=== PATIENT | female | born 1955 | race Caucasian/White ===

== ENCOUNTER 2017-03-16 12:11 | Emergency (ER) | payer OTHER ==
[~2017-03-16] VITALS: Ht 170.2 cm; Wt 90.7 kg
[~2017-03-16 12:11] MED LIST: ABAT250V; ACET500 PO; ACID REFLUX MED; ALBIPROI; ALBU90I INH; ALBU90OI INH; ALBU90OI6 INH; ALBU90OI61 INH; AMIT10 PO; AMIT25 PO; AMIT50 PO; ANTIBIOTIC PO; ASCO500 PO; AZIT250 PO; BACITO TP; BECL80OI INH; BENZ100A PO; BISA10S PR; Bactroban22 GM TOP; CARI350 PO; CEFD300 PO; CEPH500 PO; CIME400 PO; CIPR250 PO; CIPR500 PO; CLAR500 PO; CLIN300 PO; CLON.2 PO; CODACE30 PO; CODGUAEL PO; CRUTCH4 USE; CYCL10 PO; Cleocin HCl150 MG PO; Cleocin HCl300 MG PO; DICY20 PO; DIPATR PO; DIPH50 PO; DOCU100 PO; DOXY100 PO; DOXY100T53 PO; Dazidox10 MG PO; ERYT250; ESTR1; ESTR1 PO; Esgic Tablet1 EACH PO; FERR325 PO; FOLI1 PO; Ferrous Sulfat324 MG PO; HEMOTOB PR; HYDACE10B PO; HYDACE5 PO; HYDCHL12.5 PO; HYDCHL25; HYDCHLSU PO; HYDHCL25 PO; HYDMOR2 PO; HYDPAM50 PO; IBUP400 PO; IBUP600 PO; ISODICACE PO; KETO10 PO; LEVFLO500 PO; LEVO750 PO; LEVSOD112; LEVSOD112 PO; LEVSOD125 PO; LEVSOD150 PO; LEVSOD50 PO; LORA1 PO; MELA3 PO; MELATONIN10 M2 PO; MELO7.5 PO; METCAR500 PO; METCAR750 PO; METH5; METPRE4DP PO; MONISTAT 324 GM TOP; MULVITMIND PO; NAPR500 PO; NAPR550 PO; NITR100CA PO; OMEP20ER PO; ONDA4 PO; OXYACE10 PO; OXYACE5T; OXYACE5T PO; OXYACE7.5T PO; OXYB5 PO; OXYC5; OXYC5 PO; Omeprazole20 M1 PO; PARO20; PARO20 PO; PARO30 PO; PHENA200 PO; POTCHL20ER PO; POTCIT10; POTCIT5; POTCIT5 PO; PRED10 PO; PRED20 PO; PRIMATENE; PROACE100 PO; PRODEXEL PO; PROM25 PO; PROM50S PR; Percocet 5-3251 EACH PO; Prednisone10 MG PO; Prednisone20 MG PO; QVAR7.3 G1 IH; RANI150 PO; RIFA300 PO; RXHYDACE PO; RXNAPNA550 PO; RXOXYACE PO; RXTRAM50 PO; SULTRIDS PO; Silvadene20 GM TOP; TAMS.4ER PO; THYR60; TRAACE PO; TRAM50 PO; TRAZ150T57 PO; TRAZADONE; Ultram50 MG PO; Ventolin Soln3 ML INH; Ventolin/Prove6.7 GM INH; Vibramycin100 MG PO; Zithromax250 MG PO; [UNRECOGNIZED DRUG - OTHER] PO; [UNRECOGNIZED DRUG - REMARK]; [UNRECOGNIZED DRUG - REMARK]
[2017-03-16 13:58] LABS: BASOPHILS ABSOLUTE AUTO 0.02 K/mm3 (0.00-0.23); BASOPHILS PERCENT AUTO 0 % (0-2); EOSINOPHILS ABSOLUTE AUTO 0.16 K/mm3 (0.00-0.68); EOSINOPHILS PERCENT AUTO 2 % (0-6); Hematocrit 32.1 % (33.0-51.0); Hemoglobin 9.8 g/dL (11.5-16.0); IMMATURE GRAN ABSOLUTE AUTO 0.03 K/mm3 (0.00-0.10); IMMATURE GRAN PERCENT AUTO 0 % (0-1); LYMPHOCYTES ABSOLUTE AUTO 2.31 K/mm3 (0.84-5.20); LYMPHOCYTES PERCENT AUTO 31 % (21-46); MONOCYTES ABSOLUTE AUTO 0.67 K/mm3 (0.16-1.47); MONOCYTES PERCENT AUTO 9 % (4-13); Mean Corpuscular HGB Conc 30.5 g/dL (31.5-36.5); Mean Corpuscular Volume 79 fL (80-100); Mean Platelet Volume 10.4 fL (9.1-12.4); NEUTROPHILS ABSOLUTE AUTO 4.39 K/mm3 (1.96-9.15); NEUTROPHILS PERCENT AUTO 58 % (41-73); Platelet Count 336 K/mm3 (150-400); RDW Coefficient Variation 19.8 % (11.7-14.2); RDW Standard Deviation 56.5 fL (35.1-46.3); Red Blood Cell Count 4.09 M/mm3 (3.80-5.20); White Blood Cell Count 7.58 K/mm3 (4.00-11.30)
[2017-03-16 14:20] LABS: Alanine Aminotransfer (ALT/SGP 28 U/L (12-78); Albumin, Blood 2.6 g/dL (3.4-5.0); Albumin/Globulin Ratio 0.7 (0.8-1.8); Alk Phos 126 U/L (50-136); Anion Gap 6 mmol/L (6-16); Aspartate Aminotrans (AST/SGOT 24 U/L (12-37); Bilirubin, Total 0.5 mg/dL (0.1-1.0); Blood Urea Nitrogen 7 mg/dL (8-24); Bun/Creatinine Ratio 10.8 (12.0-20.0); CO2, Blood 27 mmol/L (21-32); Calcium, Blood 7.7 mg/dL (8.5-10.1); Chloride, Blood 109 mmol/L (98-108); Creatinine, Blood 0.65 mg/dL (0.40-1.00); Globulin, Blood 3.9 g/dL (2.2-4.0); Glomerular Filtration Rate >60 (60-); Glucose, Blood 85 mg/dL (70-99); Potassium, Blood 4.3 mmol/L (3.5-5.5); Sodium, Blood 142 mmol/L (136-145); Total Protein, Blood 6.5 g/dL (6.4-8.2)
[2017-12-03] MEDS ORDERED: [UNRECOGNIZED DRUG - CODE] PO (16:03)
[2017-12-03] MEDS ORDERED: ZINC15 PO (18:20)
[2017-12-03] MEDS ORDERED: CLOBET30L TOP (18:22)
[2017-12-03] MEDS ORDERED: SKIN PROTECTAN113 GM TOP (18:24)
[2017-12-03] MEDS ORDERED: NAPR500 PO (18:25)
[2017-12-03] MEDS ORDERED: PROM25 PO (18:26)
[2017-12-03] MEDS ORDERED: BUDE6HFA INH (18:28)
[2017-12-03] MEDS ORDERED: ALBU90OI61 INH (18:29)
[2017-12-03] MEDS ORDERED: COMBIVENT RESPIM4 GM INH (18:30)
[2017-12-03] MEDS ORDERED: Omeprazole20 M1 PO (18:32)
[2017-12-03] MEDS ORDERED: Triamcinolone A15 G2 TOP (18:34)
[2017-12-05] MEDS ORDERED: AMIT25 PO (14:13)
[2017-12-05] MEDS ORDERED: LEVSOD150 PO (14:15)
[2017-12-05] MEDS ORDERED: ALBU90OI INH (14:15)
[2017-12-05] MEDS ORDERED: DIPH50 PO (14:23)
[2017-12-05] MEDS ORDERED: ACET325 PO (14:26)
[2017-12-05] MEDS ORDERED: ASCO500 PO (14:27)
[2017-12-05] MEDS ORDERED: CEPH500 PO (14:27)
[2017-12-05] MEDS ORDERED: DOCU100 PO (14:28)
[2017-12-05] MEDS ORDERED: Oyster Shell C500 MG PO (14:28)
[2017-12-05] MEDS ORDERED: Ferrous Sulfat325 M2 PO (14:29)
[2017-12-05] MEDS ORDERED: ONDA4ODT MM (14:31)
[2017-12-05] MEDS ORDERED: SACC250C PO (14:31)
[2017-12-05] MEDS ORDERED: MIRALAX17 GM PO (14:34)
[2017-12-12] MEDS ORDERED: Roxicodone5 MG PO (18:29)
== END 2017-03-16 16:28 | disposition home or self-care (01) ==
LOC: ER 12:11
PROVIDERS: Emergency Medicine
DX: J11.1 Influenza due to unidentified influenza virus with other respiratory manifestations (principal); J44.9 Chronic obstructive pulmonary disease, unspecified; F32.9 Major depressive disorder, single episode, unspecified; E03.9 Hypothyroidism, unspecified; F17.210 Nicotine dependence, cigarettes, uncomplicated
CPT/HCPCS: 36415; 71046; 80053; 85025; 99283

== ENCOUNTER 2017-05-21 22:22 | Emergency (ER) | payer OTHER ==
[~2017-05-21] VITALS: Ht 170.2 cm; Wt 78.9 kg
[2017-05-21 23:37] LABS: BASOPHILS ABSOLUTE AUTO 0.03 K/mm3 (0.00-0.23); BASOPHILS PERCENT AUTO 0 % (0-2); EOSINOPHILS ABSOLUTE AUTO 0.15 K/mm3 (0.00-0.68); EOSINOPHILS PERCENT AUTO 1 % (0-6); Hematocrit 29.7 % (33.0-51.0); Hemoglobin 8.9 g/dL (11.5-16.0); IMMATURE GRAN ABSOLUTE AUTO 0.07 K/mm3 (0.00-0.10); IMMATURE GRAN PERCENT AUTO 1 % (0-1); LYMPHOCYTES PERCENT AUTO 11 % (21-46); MONOCYTES ABSOLUTE AUTO 1.16 K/mm3 (0.16-1.47); MONOCYTES PERCENT AUTO 8 % (4-13); Mean Corpuscular HGB 23.5 pg (26.0-34.0); Mean Corpuscular Volume 78 fL (80-100); Mean Platelet Volume 10.6 fL (9.1-12.4); NEUTROPHILS ABSOLUTE AUTO 11.54 K/mm3 (1.96-9.15); NEUTROPHILS PERCENT AUTO 79 % (41-73); Platelet Count 253 K/mm3 (150-400); RDW Coefficient Variation 19.7 % (11.7-14.2); RDW Standard Deviation 54.8 fL (35.1-46.3); Red Blood Cell Count 3.79 M/mm3 (3.80-5.20); White Blood Cell Count 14.55 K/mm3 (4.00-11.30)
[2017-05-21] MEDS ORDERED: OXYC5 PO (23:37)
[2017-05-21 23:56] LABS: Alanine Aminotransfer (ALT/SGP 21 U/L (12-78); Albumin, Blood 2.4 g/dL (3.4-5.0); Albumin/Globulin Ratio 0.6 (0.8-1.8); Alk Phos 199 U/L (50-136); Anion Gap 8 mmol/L (6-16); Aspartate Aminotrans (AST/SGOT 20 U/L (12-37); Bilirubin, Total 0.9 mg/dL (0.1-1.0); Blood Urea Nitrogen 10 mg/dL (8-24); Bun/Creatinine Ratio 14.1 (12.0-20.0); CO2, Blood 23 mmol/L (21-32); Calcium, Blood 7.7 mg/dL (8.5-10.1); Chloride, Blood 106 mmol/L (98-108); Creatinine, Blood 0.71 mg/dL (0.40-1.00); Globulin, Blood 4.2 g/dL (2.2-4.0); Glomerular Filtration Rate >60 (60-); Glucose, Blood 88 mg/dL (70-99); Potassium, Blood 3.8 mmol/L (3.5-5.5); Sodium, Blood 137 mmol/L (136-145); Total Protein, Blood 6.6 g/dL (6.4-8.2); Troponin I <0.015 ng/mL (0.000-0.040)
[2017-05-22] MEDS ORDERED: CEFD300 PO (01:04)
[2017-05-22] MEDS ORDERED: Prednisone20 MG PO (01:05)
[2017-12-03] MEDS ORDERED: [UNRECOGNIZED DRUG - CODE] PO (16:03)
[2017-12-03] MEDS ORDERED: ZINC15 PO (18:20)
[2017-12-03] MEDS ORDERED: CLOBET30L TOP (18:22)
[2017-12-03] MEDS ORDERED: SKIN PROTECTAN113 GM TOP (18:24)
[2017-12-03] MEDS ORDERED: NAPR500 PO (18:25)
[2017-12-03] MEDS ORDERED: PROM25 PO (18:26)
[2017-12-03] MEDS ORDERED: BUDE6HFA INH (18:28)
[2017-12-03] MEDS ORDERED: ALBU90OI61 INH (18:29)
[2017-12-03] MEDS ORDERED: COMBIVENT RESPIM4 GM INH (18:30)
[2017-12-03] MEDS ORDERED: Omeprazole20 M1 PO (18:32)
[2017-12-03] MEDS ORDERED: Triamcinolone A15 G2 TOP (18:34)
[2017-12-05] MEDS ORDERED: AMIT25 PO (14:13)
[2017-12-05] MEDS ORDERED: LEVSOD150 PO (14:15)
[2017-12-05] MEDS ORDERED: ALBU90OI INH (14:15)
[2017-12-05] MEDS ORDERED: DIPH50 PO (14:23)
[2017-12-05] MEDS ORDERED: ACET325 PO (14:26)
[2017-12-05] MEDS ORDERED: CEPH500 PO (14:27)
[2017-12-05] MEDS ORDERED: ASCO500 PO (14:27)
[2017-12-05] MEDS ORDERED: DOCU100 PO (14:28)
[2017-12-05] MEDS ORDERED: Oyster Shell C500 MG PO (14:28)
[2017-12-05] MEDS ORDERED: Ferrous Sulfat325 M2 PO (14:29)
[2017-12-05] MEDS ORDERED: SACC250C PO (14:31)
[2017-12-05] MEDS ORDERED: ONDA4ODT MM (14:31)
[2017-12-05] MEDS ORDERED: MIRALAX17 GM PO (14:34)
[2017-12-12] MEDS ORDERED: Roxicodone5 MG PO (18:29)
== END 2017-05-22 02:10 | disposition home or self-care (01) ==
LOC: ER 22:22
PROVIDERS: Emergency Medicine
DX: J44.1 Chronic obstructive pulmonary disease with (acute) exacerbation (principal); F32.9 Major depressive disorder, single episode, unspecified; E03.9 Hypothyroidism, unspecified; Z88.8 Allergy status to other drugs, medicaments and biological substances; Z88.2 Allergy status to sulfonamides; Z88.5 Allergy status to narcotic agent; Z91.040 Latex allergy status; Z88.0 Allergy status to penicillin; Z79.899 Other long term (current) drug therapy; F17.210 Nicotine dependence, cigarettes, uncomplicated
CPT/HCPCS: 36415; 71046; 80053; 83880; 84484; 85025; 93005; 93010; 94640; 96360; 99283; J7030

== ENCOUNTER 2017-06-30 11:00 | Emergency (ER) | payer OTHER ==
[~2017-06-30] VITALS: Ht 170.2 cm; Wt 81.0 kg
[~2017-06-30 11:00] MED LIST changes: -LEVSOD50 PO
[2017-06-30 11:29] LABS: BASOPHILS ABSOLUTE AUTO 0.03 K/mm3 (0.00-0.23); BASOPHILS PERCENT AUTO 0 % (0-2); EOSINOPHILS PERCENT AUTO 3 % (0-6); Hematocrit 34.6 % (33.0-51.0); Hemoglobin 9.9 g/dL (11.5-16.0); IMMATURE GRAN ABSOLUTE AUTO 0.02 K/mm3 (0.00-0.10); IMMATURE GRAN PERCENT AUTO 0 % (0-1); LYMPHOCYTES ABSOLUTE AUTO 2.42 K/mm3 (0.84-5.20); LYMPHOCYTES PERCENT AUTO 32 % (21-46); MONOCYTES ABSOLUTE AUTO 0.58 K/mm3 (0.16-1.47); MONOCYTES PERCENT AUTO 8 % (4-13); Mean Corpuscular HGB 23.2 pg (26.0-34.0); Mean Corpuscular HGB Conc 28.6 g/dL (31.5-36.5); Mean Corpuscular Volume 81 fL (80-100); NEUTROPHILS ABSOLUTE AUTO 4.33 K/mm3 (1.96-9.15); NEUTROPHILS PERCENT AUTO 57 % (41-73); Platelet Count 291 K/mm3 (150-400); RDW Coefficient Variation 20.6 % (11.7-14.2); RDW Standard Deviation 59.5 fL (35.1-46.3); Red Blood Cell Count 4.27 M/mm3 (3.80-5.20); White Blood Cell Count 7.58 K/mm3 (4.00-11.30)
[2017-06-30 11:51] LABS: Alanine Aminotransfer (ALT/SGP 19 U/L (12-78); Albumin, Blood 2.8 g/dL (3.4-5.0); Albumin/Globulin Ratio 0.7 (0.8-1.8); Alk Phos 169 U/L (50-136); Anion Gap 6 mmol/L (6-16); Aspartate Aminotrans (AST/SGOT 26 U/L (12-37); Bilirubin, Total 0.2 mg/dL (0.1-1.0); Blood Urea Nitrogen 11 mg/dL (8-24); Bun/Creatinine Ratio 13.6 (12.0-20.0); CO2, Blood 27 mmol/L (21-32); Calcium, Blood 8.1 mg/dL (8.5-10.1); Chloride, Blood 108 mmol/L (98-108); Creatinine, Blood 0.81 mg/dL (0.40-1.00); Glomerular Filtration Rate >60 (60-); Glucose, Blood 90 mg/dL (70-99); Potassium, Blood 4.1 mmol/L (3.5-5.5); Sodium, Blood 141 mmol/L (136-145); Total Protein, Blood 6.8 g/dL (6.4-8.2); Troponin I <0.015 ng/mL (0.000-0.040)
[2017-06-30] MEDS ORDERED: MORP15ER PO (12:31)
[2017-06-30 13:43] LABS: International Normalized Ratio 1.09; Prothrombin Time Results 11.4 Sec (9.7-11.5)
== END 2017-06-30 15:38 | disposition home or self-care (01) ==
LOC: ER 11:00
PROVIDERS: Emergency Medicine
DX: R60.0 Localized edema (principal); D64.9 Anemia, unspecified; F17.210 Nicotine dependence, cigarettes, uncomplicated; E03.9 Hypothyroidism, unspecified; F32.9 Major depressive disorder, single episode, unspecified; J44.9 Chronic obstructive pulmonary disease, unspecified; Z87.442 Personal history of urinary calculi; Z88.1 Allergy status to other antibiotic agents; Z88.8 Allergy status to other drugs, medicaments and biological substances; Z88.2 Allergy status to sulfonamides; Z88.5 Allergy status to narcotic agent; Z91.040 Latex allergy status; Z88.0 Allergy status to penicillin; Z79.899 Other long term (current) drug therapy
CPT/HCPCS: 36415; 80053; 83880; 84484; 85025; 85610; 85730; 93005; 93010; 93971; 99284

== ENCOUNTER 2017-10-25 14:17 | Emergency (ER) | payer OTHER ==
[~2017-10-25] VITALS: Ht 172.7 cm; Wt 77.1 kg
[~2017-10-25 14:17] MED LIST changes: +MORP15ER PO
== END 2017-10-25 17:30 | disposition home or self-care (01) ==
LOC: ER 14:17
DX: M25.512 Pain in left shoulder (principal); J44.9 Chronic obstructive pulmonary disease, unspecified; F32.9 Major depressive disorder, single episode, unspecified; E03.9 Hypothyroidism, unspecified; F17.210 Nicotine dependence, cigarettes, uncomplicated; Z87.442 Personal history of urinary calculi; Z88.1 Allergy status to other antibiotic agents; Z88.8 Allergy status to other drugs, medicaments and biological substances; Z88.2 Allergy status to sulfonamides; Z88.5 Allergy status to narcotic agent; Z91.040 Latex allergy status; Z79.899 Other long term (current) drug therapy; W18.30XA Fall on same level, unspecified, initial encounter
CPT/HCPCS: 73030; 73060; 99283-25

== ENCOUNTER 2018-03-19 12:55 | Emergency (ER) | payer OTHER ==
[~2018-03-19] VITALS: Ht 170.2 cm; Wt 77.1 kg
[~2018-03-19 12:55] MED LIST changes: +ACET325 PO; +BUDE6HFA INH; +CLOBET30L TOP; +COMBIVENT RESPIM4 GM INH; +Ferrous Sulfat325 M2 PO; +LEVSOD50 PO; +MIRALAX17 GM PO; +ONDA4ODT MM; +Oyster Shell C500 MG PO; +Roxicodone5 MG PO; +SACC250C PO; +SKIN PROTECTAN113 GM TOP; +Triamcinolone A15 G2 TOP; +ZINC15 PO; +[UNRECOGNIZED DRUG - CODE] PO
== END 2018-03-19 13:55 | disposition home or self-care (01) ==
LOC: ER 12:55
DX: S61.412A Laceration without foreign body of left hand, initial encounter (principal); J44.9 Chronic obstructive pulmonary disease, unspecified; F32.9 Major depressive disorder, single episode, unspecified; E03.9 Hypothyroidism, unspecified; F17.210 Nicotine dependence, cigarettes, uncomplicated; Z88.0 Allergy status to penicillin; Z88.2 Allergy status to sulfonamides; Z88.5 Allergy status to narcotic agent; Z88.1 Allergy status to other antibiotic agents; Z79.899 Other long term (current) drug therapy; W26.0XXA Contact with knife, initial encounter
CPT/HCPCS: 12002; 90471; 90714; 99282-25

== ENCOUNTER → 2018-05-29 | Outpatient (CLI) | payer OTHER ==
[2018-05-29 18:47] LABS: Percent Saturation 16.3 % (15.0-50.0)
== END | disposition home or self-care (01) ==
LOC: LAB SHORT 15:33 → LAB 15:33
PROVIDERS: Internal Medicine Hematology & Oncology
DX: D51.8 Other vitamin B12 deficiency anemias (principal)
CPT/HCPCS: 82607; 82728; 82746; 83540; 83550

== ENCOUNTER 2018-12-02 16:28 | Emergency (ER) | payer OTHER ==
[~2018-12-02] VITALS: Ht 170.2 cm; Wt 86.2 kg
[2018-12-02] MEDS ORDERED: Percocet 5-3251 EACH PO (17:04)
== END 2018-12-02 17:11 | disposition home or self-care (01) ==
LOC: ER 16:28
DX: S70.02XA Contusion of left hip, initial encounter (principal); E03.9 Hypothyroidism, unspecified; F32.9 Major depressive disorder, single episode, unspecified; J44.9 Chronic obstructive pulmonary disease, unspecified; F17.210 Nicotine dependence, cigarettes, uncomplicated; Z87.442 Personal history of urinary calculi; Z79.899 Other long term (current) drug therapy; W01.0XXA Fall on same level from slipping, tripping and stumbling without subsequent striking against object, initial encounter; M81.0 Age-related osteoporosis without current pathological fracture; E55.9 Vitamin D deficiency, unspecified
CPT/HCPCS: 36415; 80048; 82306; 84443; 99283-25

== ENCOUNTER 2019-06-26 03:50 | Emergency (ER) | payer OTHER ==
[~2019-06-26] VITALS: Ht 167.6 cm; Wt 90.7 kg
[2019-06-26 06:52] LABS: Source, Urine Catheter
[2019-06-26 06:57] LABS: Bilirubin, Urine Neg (Neg); Blood, Urine 1+ (Neg); Glucose Qualitative, Urine Neg (Neg); Ketones, Urine Neg (Neg); Leukocyte Esterase, Urine Neg (Neg); Nitrite, Urine Neg (Neg); Protein, Urine Neg (Neg); Specific Gravity, Urine 1.015 (1.003-1.022); Urobilinogen, Urine NORM (Normal)
[2019-06-26 07:17] LABS: Appearance, Urine Clear (Clear); Color, Urine Yellow (P-Yellow)
[2019-06-26 07:19] LABS: Bacteria Rare /hpf; Red Blood Cells, Urine 0-2 /hpf (0-2); Squamous Epithelial Cells Few /hpf (Few); White Blood Cells, Urine 0-2 /hpf (0-5)
== END 2019-06-26 07:43 | disposition short-term general hospital (02) ==
LOC: ER 03:50
PROVIDERS: Emergency Medicine
DX: S72.342A Displaced spiral fracture of shaft of left femur, initial encounter for closed fracture (principal); E03.9 Hypothyroidism, unspecified; F32.9 Major depressive disorder, single episode, unspecified; J44.9 Chronic obstructive pulmonary disease, unspecified; F17.210 Nicotine dependence, cigarettes, uncomplicated; Z79.899 Other long term (current) drug therapy; W19.XXXA Unspecified fall, initial encounter; Y92.002 Bathroom of unspecified non-institutional (private) residence as the place of occurrence of the external cause
CPT/HCPCS: 51702; 73502; 73552; 73560-LT; 81001; 93005; 93010; 96374-59; 96376-59; 99285-25; J3010

== ENCOUNTER 2020-03-13 20:13 | Emergency (ER) | payer OTHER ==
[~2020-03-13] VITALS: Ht 170.2 cm; Wt 80.3 kg
== END 2020-03-13 23:35 | disposition home or self-care (01) ==
LOC: ER 20:13
DX: S70.01XA Contusion of right hip, initial encounter (principal); F17.210 Nicotine dependence, cigarettes, uncomplicated; Z79.899 Other long term (current) drug therapy; Z79.51 Long term (current) use of inhaled steroids; Z88.1 Allergy status to other antibiotic agents; Z88.2 Allergy status to sulfonamides; Z88.5 Allergy status to narcotic agent; Z91.040 Latex allergy status; Z88.8 Allergy status to other drugs, medicaments and biological substances; W01.0XXA Fall on same level from slipping, tripping and stumbling without subsequent striking against object, initial encounter; Y92.002 Bathroom of unspecified non-institutional (private) residence as the place of occurrence of the external cause
CPT/HCPCS: 73502; 99284-25; A9270

== ENCOUNTER 2020-08-19 18:43 | Emergency (ER) | payer OTHER ==
[~2020-08-19] VITALS: Ht 170.2 cm; Wt 80.3 kg
[2020-08-19] MEDS ORDERED: CEPH500 PO (19:49)
== END 2020-08-19 20:00 | disposition home or self-care (01) ==
LOC: ER 18:43
DX: M79.644 Pain in right finger(s) (principal); J44.9 Chronic obstructive pulmonary disease, unspecified; F17.210 Nicotine dependence, cigarettes, uncomplicated; Z88.2 Allergy status to sulfonamides; Z88.5 Allergy status to narcotic agent; Z91.040 Latex allergy status; Z88.8 Allergy status to other drugs, medicaments and biological substances; Z79.899 Other long term (current) drug therapy
CPT/HCPCS: 99282; A9270

== ENCOUNTER → 2021-05-23 | Outpatient (CLI) | payer OTHER ==
[~2021-05-23] MED LIST changes: +HYDCHL25 PO
[2021-05-23 14:54] LABS: Blood, Urine 5+ (Neg); Glucose Qualitative, Urine Neg (Neg); Ketones, Urine 1+ (Neg); Leukocyte Esterase, Urine 3+ (Neg); Nitrite, Urine Neg (Neg); Protein, Urine 3+ (Neg); Urobilinogen, Urine 1+ (Normal)
[2021-05-23 15:12] LABS: Appearance, Urine Hazy (Clear); Color, Urine Brown (P-Yellow)
[2021-05-23 15:13] LABS: Bilirubin, Urine 1+ (Neg); Red Blood Cells, Urine 50-100 /hpf (0-2); Squamous Epithelial Cells Few /hpf (Few)
[2021-05-23 15:14] LABS: Bacteria Mod /hpf; Mucus Light (0-Heavy); Yeast/Fungi Urine Rare /hpf
== END ==
LOC: LAB SHORT 13:03
PROVIDERS: Physician Assistant Medical
DX: N30.90 Cystitis, unspecified without hematuria (principal)
CPT/HCPCS: 81001

== ENCOUNTER 2021-08-24 15:15 | Observation (INO) | payer OTHER ==
[~2021-08-24] VITALS: Ht 170.2 cm; Wt 104.7 kg
[~2021-08-24 15:15] MED LIST changes: -BUDE6HFA INH; +LEVOTHYROXINE200 MCG PO; +SYMBICORT 160-4.6 GM INH
[2021-08-24 16:47] LABS: BASOPHILS ABSOLUTE AUTO 0.02 K/mm3 (0.00-0.23); BASOPHILS PERCENT AUTO 0 % (0-2); EOSINOPHILS ABSOLUTE AUTO 0.24 K/mm3 (0.00-0.68); EOSINOPHILS PERCENT AUTO 4 % (0-6); Hematocrit 23.2 % (33.0-51.0); Hemoglobin 6.5 g/dL (11.5-16.0); IMMATURE GRAN ABSOLUTE AUTO 0.02 K/mm3 (0.00-0.10); IMMATURE GRAN PERCENT AUTO 0 % (0-1); LYMPHOCYTES ABSOLUTE AUTO 1.38 K/mm3 (0.84-5.20); LYMPHOCYTES PERCENT AUTO 22 % (21-46); MONOCYTES ABSOLUTE AUTO 0.58 K/mm3 (0.16-1.47); MONOCYTES PERCENT AUTO 9 % (4-13); Mean Corpuscular HGB 20.6 pg (26.0-34.0); Mean Corpuscular Volume 74 fL (80-100); Mean Platelet Volume 10.1 fL (9.1-12.4); NEUTROPHILS ABSOLUTE AUTO 4.01 K/mm3 (1.96-9.15); NEUTROPHILS PERCENT AUTO 64 % (41-73); Platelet Count 263 K/mm3 (150-400); RDW Coefficient Variation 18.6 % (11.7-14.2); RDW Standard Deviation 49.2 fL (35.1-46.3); Red Blood Cell Count 3.15 M/mm3 (3.80-5.20); White Blood Cell Count 6.25 K/mm3 (4.00-11.30)
[2021-08-24 17:18] LABS: Albumin, Blood 2.8 g/dL (3.4-5.0); Albumin/Globulin Ratio 0.7 (0.8-1.8); Bilirubin, Total 0.9 mg/dL (0.1-1.0); Bun/Creatinine Ratio 10.2 (12.0-20.0); Calcium, Blood 8.4 mg/dL (8.5-10.1); Creatinine, Blood 0.88 mg/dL (0.40-1.00); Globulin, Blood 3.9 g/dL (2.2-4.0); Potassium, Blood 3.8 mmol/L (3.5-5.5); Total Protein, Blood 6.7 g/dL (6.4-8.2)
[2021-08-24 19:48] LABS: International Normalized Ratio 1.24; Prothrombin Time Results 12.8 Sec (9.7-11.5)
[2021-08-24 23:45] LABS: Influenza A, PCR NEGATIVE (NEGATIVE); Influenza B, PCR NEGATIVE (NEGATIVE); Resp Syncytial Virus, PCR NEGATIVE (NEGATIVE); SARS-Cov-2 (COVID-19) PCR, MMC NEGATIVE (NEGATIVE)
[2021-08-25] MEDS ORDERED: THERA-D2000 UNIT PO (01:10)
[2021-08-25] MEDS ORDERED: Ventolin/Prove6.7 GM INH (01:12)
[2021-08-25] MEDS ORDERED: AMITRIPTYLINE100 M6 PO (01:14)
[2021-08-25 01:28] LABS: Hematocrit 23.3 % (33.0-51.0); Hemoglobin 6.7 g/dL (11.5-16.0); IMMATURE RETIC FRACTION 25.4 % (2.3-16.0); RETIC HGB EQUIVALENT 18.1 pg (28.20-36.60); RETICULOCYTE ABSOLUTE 0.0606 M/mm3 (0.0200-0.1100); RETICULOCYTE COUNT PERCENT 1.93 % (0.50-2.50)
[2021-08-25 01:56] LABS: Percent Saturation 3.6 % (15.0-50.0)
--- NOTE | 2021-08-25 02:05 | NUR ---
PT HERE VIA [place] FROM ER. PT REQUESTING TO TRANSFER SELF TO MEDICAL FLOOR BED - PT STOOD AND PIVOT INTO MEDICAL FLOOR BED. PT'S SKIN COLOR IS PALE. BLE WARM TO TOUCH, NO REDNESS PRESENT. PT IS COOPERATIVE WITH CARE, ANXIOUS. PT CONTINUES WITH INCREASED PAIN TO BILATERAL LEGS, "INCREASES WITH MOVEMENT." WILL MEDICATE PER EMAR. PT REPORTS SHE IS A SMOKER. LS ARE DIMINISHED WITH EXPIRATORY WHEEZES THROUGHOUT. PT DENIES OXYGEN USE AT HOME. PT REPORTS SHE DOES USE INHALERS AT HOME. PT REPORTS SHE IS WHEELCHAIR BOUND AT HOME. NO DVT, PER ER REPORT FROM YASMIN LAGUNA. TELE PLACED ON DURING ASSESSMENT - NSR. PAS PLACED ON DURING ASSESSMENT. CALL LIGHT WITHIN REACH. ICE CHIPS PER PT REQUEST AT BEDSIDE - DECLINES WATER. BED IN LOW POSITION. PT ORIENTED TO ROOM AND CALL LIGHT. WILL CONTINUE TO MONITOR UNTIL AM SHIFT CHANGE.
--- NOTE | 2021-08-25 04:50 | NUR ---
PAS OFF - PT UP TO BSC. PAS LEFT OFF ONCE BACK TO BED - AWAITING RADIOLOGY TO READ ULTRA SOUND REPORT FOR DVT.
--- NOTE | 2021-08-25 05:59 | NUR ---
SHIFT SUMMARY - PT CONTINUES TO REPORT LEG PAIN - SEE EMAR FOR MANAGEMENT. PT IS CURRENTLY SLEEPING. PT RECEIVING 1 UNIT PRBC'S TO LEFT FA IV SITE WITHOUT COMPLICATIONS. VSS. PAS REMAIN OFF - WILL REPORT OFF TO ONCOMING SHIFT AWAITING RADIOLOGY TO READ ULTRA SOUND REPORT FOR POTENTION DVT PER PROGRESS NOTE. PT CONTINUES PALE, DENIED FEELING DIZZY WHEN UP TO BSC - PT REFUSED BEDPAN USE. PT ALSO INSISTED UPON ADMIT TO TRANSFER SELF TO MEDICAL FLOOR BED - SEE ADMIT NOTE. LEGS WARM TO TOUCH, NO REDNESS PRESENT, 1+ BLE EDEMA. ICE CHIPS AT BEDSIDE. BED IN LOW POSITION. CALL [place] WITHIN REACH. WILL CONTINUE TO MONITOR UNTIL AM SHIFT CHANGE. PAS REMAIN OFF.
--- NOTE | 2021-08-25 06:03 | NUR ---
WILL ALSO REPORT OFF URINE SAMPLE NEEDED.
--- NOTE | 2021-08-25 06:40 | NUR ---
LEFT FA IV SITE INFILTRATED - BLOOD TURNED OFF. LEFT THUMB IV SITE INFILTRATED - BOTH IV'S REMOVED - CATHETER INTACT.
--- NOTE | 2021-08-25 06:47 | NUR ---
GINA SEYMOUR IN ATTEMPTING IV START.
--- NOTE | 2021-08-25 07:20 | NUR ---
NEW IV PLACED - BLOOD RESTARTED AT 125 HOUR. REPORT GIVEN TO YASMIN VALVERDE.
[2021-08-25 10:48] LABS: BASOPHILS ABSOLUTE AUTO 0.03 K/mm3 (0.00-0.23); BASOPHILS PERCENT AUTO 0 % (0-2); EOSINOPHILS ABSOLUTE AUTO 0.25 K/mm3 (0.00-0.68); EOSINOPHILS PERCENT AUTO 4 % (0-6); Hematocrit 26.8 % (33.0-51.0); Hemoglobin 7.6 g/dL (11.5-16.0); IMMATURE GRAN ABSOLUTE AUTO 0.02 K/mm3 (0.00-0.10); IMMATURE GRAN PERCENT AUTO 0 % (0-1); LYMPHOCYTES ABSOLUTE AUTO 1.33 K/mm3 (0.84-5.20); LYMPHOCYTES PERCENT AUTO 19 % (21-46); MONOCYTES ABSOLUTE AUTO 0.74 K/mm3 (0.16-1.47); MONOCYTES PERCENT AUTO 11 % (4-13); Mean Corpuscular HGB 21.4 pg (26.0-34.0); Mean Corpuscular HGB Conc 28.4 g/dL (31.5-36.5); Mean Corpuscular Volume 76 fL (80-100); Mean Platelet Volume 10.9 fL (9.1-12.4); NEUTROPHILS ABSOLUTE AUTO 4.63 K/mm3 (1.96-9.15); NEUTROPHILS PERCENT AUTO 66 % (41-73); Platelet Count 233 K/mm3 (150-400); RDW Coefficient Variation 18.2 % (11.7-14.2); RDW Standard Deviation 50.1 fL (35.1-46.3); Red Blood Cell Count 3.55 M/mm3 (3.80-5.20)
[2021-08-25 11:10] LABS: Albumin, Blood 2.6 g/dL (3.4-5.0); Albumin/Globulin Ratio 0.7 (0.8-1.8); Bilirubin, Total 2.2 mg/dL (0.1-1.0); Bun/Creatinine Ratio 9.1 (12.0-20.0); Creatinine, Blood 0.88 mg/dL (0.40-1.00); Globulin, Blood 3.5 g/dL (2.2-4.0); Potassium, Blood 3.9 mmol/L (3.5-5.5); Total Protein, Blood 6.1 g/dL (6.4-8.2)
[2021-08-25 11:40] LABS: Source, Urine Clean Catch
[2021-08-25 11:45] LABS: Appearance, Urine Clear (Clear); Bilirubin, Urine Neg (Neg); Blood, Urine Neg (Neg); Color, Urine Yellow (P-Yellow); Glucose Qualitative, Urine Neg (Neg); Ketones, Urine Neg (Neg); Leukocyte Esterase, Urine 2+ (Neg); Nitrite, Urine Neg (Neg); Protein, Urine 1+ (Neg); Urobilinogen, Urine 1+ (Normal); pH, Urine 6.5 (5.0-8.0)
[2021-08-25 12:33] LABS: Bacteria Mod /hpf; Red Blood Cells, Urine 0-2 /hpf (0-2); Squamous Epithelial Cells Few /hpf (Few)
--- NOTE | 2021-08-25 18:12 | NUR ---
END OF SHIFT SUMMARY: PATIENT DENIED SHORTNESS OF BREATH OR DIZZINESS THROUGHOUT THE DAY. WITH ONE ASSIST PATIENT ABLE TO STAND PIVOT TO THE BEDSIDE COMMODE. PATIENT AND PATIENT'S DAUGHTER REPORT MULTIPLE FALLS RECENTLY. DAUGHTER (MARGARITA) REPORTS CONCERNS OVER PATIENT'S ABILITY TO CARE FOR HERSELF AT HOME. THE DAUGHTER IS SUPPORTIVE OF THE PATIENT. PATIENT TOLERATED UNIT OF PRBCS WELL. PATIENT HAD A SMALL BOWEL MOVEMENT THAT WAS BROWN/YELLOW AND SLIGHTLY GELATINOUS IN TEXTURE. NO SIGNS OF DARK TARRY STOOL OR CHELSEA BLOOD. PATIENT REPORTS HIGH LEVELS OF PAIN IN HER LEGS THROUGHOUT THE DAY. PATIENT REPORTS THAT THIS IS NORMAL FOR HER. PATIENT ABLE TO REPOSITION INDEPENDENTLY. MEDICATED PER PRNS AND PATIENT EXPERIENCED RELIEF. NO REDNESS NOTED. LEGS HAVE SIMILAR LEVELS OF EDEMA.
[2021-08-26 05:59] LABS: Hematocrit 27.7 % (33.0-51.0); Hemoglobin 7.8 g/dL (11.5-16.0); Mean Corpuscular HGB 21.3 pg (26.0-34.0); Mean Corpuscular HGB Conc 28.2 g/dL (31.5-36.5); Mean Corpuscular Volume 76 fL (80-100); Mean Platelet Volume 10.4 fL (9.1-12.4); Platelet Count 264 K/mm3 (150-400); RDW Coefficient Variation 18.5 % (11.7-14.2); RDW Standard Deviation 50.3 fL (35.1-46.3); Red Blood Cell Count 3.67 M/mm3 (3.80-5.20); White Blood Cell Count 5.97 K/mm3 (4.00-11.30)
--- NOTE | 2021-08-26 06:15 | NUR ---
ASSUMED CARE OF PT AT 1900 HRS. NO ACUTE CHANGES THIS SHIFT. PT IS A&OX4, IS A SBA ASSIST TO BSC, AND REQUIRES ENCOURAGEMENT TO USE CALL LIGHT. PT IMPLUSIVE AND WILL STAND WITHOUT CALLING STAFF FOR ASSISTANCE, BED ALARM ON FOR SAFETY. PT IS ABLE TO SLEEP 6+ HOURS THIS SHIFT. H&H IS 7.8 THIS MORNING. PT REPORTS PAIN, PRN TRACE 1MG GIVEN. WILL CONTINUE TO MONITOR THIS PT AND GIVE HANDOFF REPORT TO ONCOMING RN.
--- NOTE | 2021-08-26 11:45 | NUR ---
TEST DOSE OF INFED: LATE ENTRY: PATIENT TOLERATED TEST DOSE OF INFED WITHOUT REACTION. VITALS STABLE THROUGHOUT THE HOUR OF MONITORING. PATIENT DENIED CHANGES TO PAIN OR BREATHING. NO CHANGES NOTED FROM MORNING ASSESSMENT.
--- NOTE | 2021-08-26 19:18 | NUR ---
DISCHARGE SUMMARY: PATIENT READY FOR DISCHARGE AFTER IV IRON TRANSFUSED. PATIENT TOLERATED WITHOUT REACTION. PATIENT UP TO THE BSC MULTIPLE TIMES WITHOUT DIZZINESS OR SHORTNESS OF BREATH. PATIENT VERBALIZED THAT SHE NEEDS TO GET A COLONOSCOPY WHEN POSSIBLE. PATIENT'S DAUGHTER REPORTED THAT SHE WILL ASSIST WITH THIS PROCESS. NO CHANGES TO HOME MEDICATIONS. PATIENT DISCHARGE INSTRUCTIONS AND EDUCATIONS PROVIDED. ALL QUESTIONS AND CONCERNS ADDRESSED. PATIENT DISCHARGE IN WHEELCHAIR TO MEET DAUGHTER. PATIENT STABLE AT TIME OF DISCHARGE.
== END 2021-08-26 18:10 | disposition home or self-care (01) ==
LOC: ER 15:15 → MEDS 15:16
PROVIDERS: Emergency Medicine; Internal Medicine; Student in an Organized Health Care Education/Training Program; ADMIT Internal Medicine
DX: D50.9 Iron deficiency anemia, unspecified (principal); J44.9 Chronic obstructive pulmonary disease, unspecified; F11.20 Opioid dependence, uncomplicated; M79.7 Fibromyalgia; F32.A Depression, unspecified; F41.9 Anxiety disorder, unspecified; E03.9 Hypothyroidism, unspecified; M19.90 Unspecified osteoarthritis, unspecified site; F17.210 Nicotine dependence, cigarettes, uncomplicated; Z88.0 Allergy status to penicillin; Z88.2 Allergy status to sulfonamides; Z88.1 Allergy status to other antibiotic agents; Z91.040 Latex allergy status; Z88.5 Allergy status to narcotic agent; Z91.018 Allergy to other foods
CPT/HCPCS: 0241U; 36415; 80053; 81001; 82728; 83540; 83550; 83880; 85014; 85018; 85025; 85027; 85045; 85610; 85730; 86850; 86900; 86901; 86923; 87086; 93005; 93010; 93970; 94640; 94664; 94760; 96375; 96376; A9270; C9113; G0378; J1750; J2270; J2405; J3010; J3360; J7030; J7040; P9016

== ENCOUNTER 2021-09-23 15:30 | Inpatient (IN) | payer OTHER ==
[~2021-09-23] VITALS: Ht 172.7 cm; Wt 95.0 kg
[~2021-09-23 15:30] MED LIST changes: +AMITRIPTYLINE100 M6 PO; +THERA-D2000 UNIT PO
[2021-09-23 16:14] LABS: Source, Urine Straight Cath
[2021-09-23 16:23] LABS: BASOPHILS ABSOLUTE AUTO 0.02 K/mm3 (0.00-0.23); BASOPHILS PERCENT AUTO 0 % (0-2); EOSINOPHILS ABSOLUTE AUTO 0.21 K/mm3 (0.00-0.68); EOSINOPHILS PERCENT AUTO 2 % (0-6); Hemoglobin 10.7 g/dL (11.5-16.0); IMMATURE GRAN ABSOLUTE AUTO 0.02 K/mm3 (0.00-0.10); IMMATURE GRAN PERCENT AUTO 0 % (0-1); LYMPHOCYTES ABSOLUTE AUTO 1.34 K/mm3 (0.84-5.20); LYMPHOCYTES PERCENT AUTO 15 % (21-46); MONOCYTES ABSOLUTE AUTO 0.87 K/mm3 (0.16-1.47); MONOCYTES PERCENT AUTO 10 % (4-13); Mean Platelet Volume 9.9 fL (9.1-12.4); NEUTROPHILS ABSOLUTE AUTO 6.49 K/mm3 (1.96-9.15); NEUTROPHILS PERCENT AUTO 73 % (41-73); Platelet Count 159 K/mm3 (150-400); White Blood Cell Count 8.95 K/mm3 (4.00-11.30)
[2021-09-23 16:23] LABS: Appearance, Urine Hazy (Clear); Blood, Urine 3+ (Neg); Color, Urine Amber (P-Yellow); Glucose Qualitative, Urine Neg (Neg); Ketones, Urine Neg (Neg); Leukocyte Esterase, Urine 3+ (Neg); Nitrite, Urine Neg (Neg); Protein, Urine 2+ (Neg); Specific Gravity, Urine 1.025 (1.003-1.022); Urobilinogen, Urine 2+ (Normal)
[2021-09-23 16:35] LABS: Hematocrit 35.2 % (33.0-51.0); Mean Corpuscular HGB 26.2 pg (26.0-34.0); Mean Corpuscular HGB Conc 30.4 g/dL (31.5-36.5); Mean Corpuscular Volume 86 fL (80-100); Red Blood Cell Count 4.09 M/mm3 (3.80-5.20)
[2021-09-23 16:37] LABS: Bacteria Mod /hpf; Bilirubin, Urine 1+ (Neg); Mucus Light (0-Heavy); Red Blood Cells, Urine 0-2 /hpf (0-2); Renal Epithelial Rare /hpf (0-Rare); Squamous Epithelial Cells Many /hpf (Few); Transitional Epithelial Cells Rare /hpf (0-Rare); White Blood Cells, Urine TNTC /hpf (0-5)
[2021-09-23 16:37] LABS: Albumin, Blood 3.2 g/dL (3.4-5.0); Albumin/Globulin Ratio 0.9 (0.8-1.8); Bilirubin, Total 1.3 mg/dL (0.1-1.0); Bun/Creatinine Ratio 25.3 (12.0-20.0); Calcium, Blood 8.7 mg/dL (8.5-10.1); Creatinine, Blood 0.95 mg/dL (0.40-1.00); Globulin, Blood 3.7 g/dL (2.2-4.0); Potassium, Blood 4.5 mmol/L (3.5-5.5); Total Protein, Blood 6.9 g/dL (6.4-8.2)
[2021-09-23 16:44] LABS: U Amphetamine Screen Not Detected; U Barbituate Screen Not Detected; U Benzodiazapine Screen DETECTED; U Buprenorphine Screen DETECTED; U Cannabinoids Screen Not Detected; U Cocaine Screen Not Detected; U Methadone Screen Not Detected; U Methamphetamine Screen Not Detected; U Opiates Screen Not Detected; U Oxycodone Screen Not Detected; U Phencyclidine Screen Not Detected; U Propoxyphene Screen Not Detected
[2021-09-23 18:08] LABS: International Normalized Ratio 1.14; Prothrombin Time Results 11.9 Sec (9.7-11.5)
--- NOTE | 2021-09-23 19:14 | NUR ---
SHIFT SUMMARY: ASSUMED CARE OF PATIENT UPON HER ARRIVAL FROM ED AT 1830. A&O X 1, CONFUSED, RAMBLING CONVERSATION, TROUBLE WITH WORD FINDING. VALENCIA DRAINING YELLOW URINE. NO DYSPHAGIA NOTED. TRANSFERRED FROM [facility] TO BED WITH ASSISTANCE. REMAINDER OF NS LITER BAG FROM ED INFUSING. REPORT GIVEN TO Mary ZELAYA RN.
--- NOTE | 2021-09-24 05:13 | NUR ---
SHIFT SUMMARY: PT IS ALERT AND CONFUSED. PT COOPERATIVE WITH CARE IN THE BEGINNING OF THE NIGHT, BECAME MORE CONFUSED AND STATED SHE WAS GOING TO GO OUTSIDE TO SMOKE, INFORMED THE PATIENT THAT THIS WAS NOT SAFE, PT BECAME AGITATED AND WAS NOT REDIRECTABLE, APPLIED A VEST AND BL SOFT WRIST RESTRAINTS. PT INITIALLY AGITATED WITH RESTRAINTS BUT SOON FELL ASLEEP. PT AWOKE LATER IN THE SHIFT AND WAS COOPERATIVE AND APOLOGETIC TO STAFF, RESTRAINTS WERE DC'D AT THIS TIME. PT DENIES PAIN, NAUSEA, VOMITING, AND SOB. BED IN LOW POSITION, CALL LIGHT WITHIN REACH, BED ALARM SET. WILL CONTINUE TO MONITOR.
[2021-09-24 06:14] LABS: Albumin, Blood 2.9 g/dL (3.4-5.0); Albumin/Globulin Ratio 0.8 (0.8-1.8); Bilirubin, Total 1.3 mg/dL (0.1-1.0); Bun/Creatinine Ratio 22.2 (12.0-20.0); Calcium, Blood 8.6 mg/dL (8.5-10.1); Creatinine, Blood 0.81 mg/dL (0.40-1.00); Globulin, Blood 3.6 g/dL (2.2-4.0); Potassium, Blood 4.1 mmol/L (3.5-5.5); Total Protein, Blood 6.5 g/dL (6.4-8.2)
--- NOTE | 2021-09-24 10:22 | NUR ---
CALL TO MD/LATE ENTRY 0900: PLACED A CALL TO MD REQUESTING MEDICATION FOR PT'S C/O ANXIETY. RECEIVED ORDER FOR ATIVAN .5MG PO ONE TIME ADMINISTRATION.
--- NOTE | 2021-09-24 18:03 | NUR ---
SHIFT SUMMARY A&O X 2. CONFUSED OFF AND ON, ANXIOUS, IRRITABLE, LABILE AND CAN BECOME ANGRY. SHIFT WHEN ON SHE BECAME MORE CLEAR. DID C/O OF SIGNIFICANT PAIN. PLACED CALL TO MD AND RECEIVED ORDERS FOR PAIN MEDICATION. PT PULLED PIV OUT. RESTARTED HER PIV IN L FA WITH A 22G IV AFTER 2 ATTEMPTS. SHE HAS HAD SMALL PELLET TYPE BM's. CONTINUES TO TAKE LACTULOSE ORDERED. VALENCIA INTACT & PATENT. PLAN IS LIKELY HOME WITH HH UPON DC WHEN CLINICALLY STABLE FOR DC.
--- NOTE | 2021-09-25 05:42 | NUR ---
SHIFT SUMMARY PATIENT ALERT AND ORIENTED X2. MEDICATED PER EMAR FOR PAIN. HAD NO COMPLAINTS OF SHORTNESS OF BREATH. NO ACUTE ISSUES NOTED OVERNIGHT. CALL LIGHT WITHIN REACH. REPORT GIVEN TO ONCOMING RN.
[2021-09-25 05:58] LABS: Hemoglobin 10.3 g/dL (11.5-16.0); Mean Platelet Volume 10.3 fL (9.1-12.4); Platelet Count 154 K/mm3 (150-400); White Blood Cell Count 7.73 K/mm3 (4.00-11.30)
[2021-09-25 06:03] LABS: International Normalized Ratio 1.19; Prothrombin Time Results 12.4 Sec (9.7-11.5)
[2021-09-25 06:13] LABS: Hematocrit 34.3 % (33.0-51.0); Mean Corpuscular HGB 26.2 pg (26.0-34.0); Mean Corpuscular Volume 87 fL (80-100); Red Blood Cell Count 3.93 M/mm3 (3.80-5.20)
[2021-09-25 06:29] LABS: Albumin, Blood 2.7 g/dL (3.4-5.0); Albumin/Globulin Ratio 0.8 (0.8-1.8); Bilirubin, Total 1.4 mg/dL (0.1-1.0); Bun/Creatinine Ratio 15.9 (12.0-20.0); Creatinine, Blood 0.75 mg/dL (0.40-1.00); Globulin, Blood 3.5 g/dL (2.2-4.0); Magnesium, Blood 1.8 mg/dL (1.6-2.4); Phosphorus, Blood 2.8 mg/dL (2.5-4.9); Potassium, Blood 3.7 mmol/L (3.5-5.5); Total Protein, Blood 6.2 g/dL (6.4-8.2)
[2021-09-25] MEDS ORDERED: CEFD300 PO (11:47)
[2021-09-25] MEDS ORDERED: LACT10SY PO (11:47)
[2021-09-25] MEDS ORDERED: VISBIOME 112.51 EACH PO (11:48)
[2021-09-25] MEDS ORDERED: ONDA4ODT MM (11:48)
--- NOTE | 2021-09-25 12:09 | NUR ---
DC HOME PT DC'D HOME WITH HH. DC INSTRUCTIONS GIVEN TO PT. PT VERBALIZED GOOD UNDERSTANDING. NEW MED SCRIPTS FAXED TO PREFERRED PHARMACY. PIV DC'D WITH CATH TIP INTACT. NO REDNESS OR SWELLING NOTED AT SITE. PT HOME VIA W/C WITH ALL PERSONAL BELONGINGS. DTR STEPHANIE TO DRIVE PT HOME.
== END 2021-09-25 12:07 | disposition home health service (06) | DRG 689 ==
LOC: ER 15:30 → MEDS 15:31
PROVIDERS: Family Medicine; Student in an Organized Health Care Education/Training Program; ADMIT Internal Medicine
DX: N39.0 Urinary tract infection, site not specified (principal); K72.00 Acute and subacute hepatic failure without coma; J44.9 Chronic obstructive pulmonary disease, unspecified; E03.9 Hypothyroidism, unspecified; F17.210 Nicotine dependence, cigarettes, uncomplicated; E86.0 Dehydration; K74.60 Unspecified cirrhosis of liver; D63.8 Anemia in other chronic diseases classified elsewhere; M19.90 Unspecified osteoarthritis, unspecified site; M79.7 Fibromyalgia; F32.A Depression, unspecified; F41.9 Anxiety disorder, unspecified; B95.4 Other streptococcus as the cause of diseases classified elsewhere; Z88.0 Allergy status to penicillin; Z88.2 Allergy status to sulfonamides; Z88.5 Allergy status to narcotic agent; Z91.040 Latex allergy status; Z88.8 Allergy status to other drugs, medicaments and biological substances; Z87.442 Personal history of urinary calculi; Z90.49 Acquired absence of other specified parts of digestive tract; Z98.890 Other specified postprocedural states
CPT/HCPCS: 36415; 51702; 70450; 71045; 80053; 81001; 82140; 83735; 84100; 84443; 84484; 85025; 85027; 85610; 87086; 93005; 93010; 96374-59; 97110; 97116; 97162; 97165; 97530; 99285-25; A9270; G0378; J0696; J2270; J7030

== ENCOUNTER 2021-10-02 11:15 | Observation (INO) | payer OTHER ==
[~2021-10-02] VITALS: Ht 170.2 cm; Wt 105.0 kg
[~2021-10-02 11:15] MED LIST changes: +LACT10SY PO; +VISBIOME 112.51 EACH PO
[2021-10-02 12:03] LABS: BASOPHILS ABSOLUTE AUTO 0.04 K/mm3 (0.00-0.23); BASOPHILS PERCENT AUTO 1 % (0-2); EOSINOPHILS ABSOLUTE AUTO 0.22 K/mm3 (0.00-0.68); EOSINOPHILS PERCENT AUTO 3 % (0-6); Hemoglobin 10.9 g/dL (11.5-16.0); IMMATURE GRAN ABSOLUTE AUTO 0.01 K/mm3 (0.00-0.10); IMMATURE GRAN PERCENT AUTO 0 % (0-1); LYMPHOCYTES ABSOLUTE AUTO 1.51 K/mm3 (0.84-5.20); LYMPHOCYTES PERCENT AUTO 21 % (21-46); MONOCYTES PERCENT AUTO 10 % (4-13); Mean Platelet Volume 10.4 fL (9.1-12.4); NEUTROPHILS ABSOLUTE AUTO 4.69 K/mm3 (1.96-9.15); NEUTROPHILS PERCENT AUTO 65 % (41-73); Platelet Count 185 K/mm3 (150-400); White Blood Cell Count 7.17 K/mm3 (4.00-11.30)
[2021-10-02 12:09] LABS: Hematocrit 36.3 % (33.0-51.0); Mean Corpuscular HGB 26.8 pg (26.0-34.0); Mean Corpuscular Volume 89 fL (80-100); Red Blood Cell Count 4.07 M/mm3 (3.80-5.20)
[2021-10-02 12:21] LABS: Albumin, Blood 3.1 g/dL (3.4-5.0); Albumin/Globulin Ratio 0.8 (0.8-1.8); Bilirubin, Total 1.1 mg/dL (0.1-1.0); Bun/Creatinine Ratio 15.4 (12.0-20.0); Calcium, Blood 8.6 mg/dL (8.5-10.1); Creatinine, Blood 0.98 mg/dL (0.40-1.00); Globulin, Blood 3.7 g/dL (2.2-4.0); Potassium, Blood 4.3 mmol/L (3.5-5.5); Total Protein, Blood 6.8 g/dL (6.4-8.2)
[2021-10-02 14:17] LABS: Source, Urine Clean Catch
[2021-10-02 14:33] LABS: Appearance, Urine Clear (Clear); Bilirubin, Urine Neg (Neg); Blood, Urine 3+ (Neg); Color, Urine Yellow (P-Yellow); Glucose Qualitative, Urine Neg (Neg); Ketones, Urine Neg (Neg); Leukocyte Esterase, Urine Neg (Neg); Nitrite, Urine Neg (Neg); Protein, Urine Neg (Neg); Urobilinogen, Urine 1+ (Normal)
[2021-10-02 14:40] LABS: Bacteria Few /hpf; Squamous Epithelial Cells Few /hpf (Few); White Blood Cells, Urine 0-2 /hpf (0-5)
[2021-10-02 14:48] LABS: U Amphetamine Screen Not Detected
[2021-10-02 14:49] LABS: U Barbituate Screen Not Detected; U Benzodiazapine Screen DETECTED; U Buprenorphine Screen DETECTED; U Cannabinoids Screen Not Detected; U Cocaine Screen Not Detected; U Methadone Screen Not Detected; U Methamphetamine Screen Not Detected; U Opiates Screen Not Detected; U Oxycodone Screen Not Detected; U Phencyclidine Screen Not Detected; U Propoxyphene Screen Not Detected
--- NOTE | 2021-10-02 23:58 | NUR ---
ADMIT NOTE 66 YR OLD FEMALE ADMITTED TO FLOOR FROM THE ED WITH DX OF AMS. ED RN REPORTED DAUGHTER WAS NOTING PT WAS BECOMING MORE CONFUSED AND HAD A POSSIBLE FALL. CAME TO THE ED AND ONE LITER OF LR ADMINISTERED AND SEEMED TO ANSWER QUESTIONS BETTER, MORE AWARE, BUT THEN SEEMED TO BECOME MORE CONFUSED LATER. PT PRESENTS SELF WITHCHEERFUL, PLAYFUL AFFECT. JOKES WITH STAFF. ROOM AIR. ORIENTED TO USE OF CALL LIGHT. CALL LIGHT IN REACH. RAILS UP X 2. NOTE LEFT LEG SEEMS SHORTER THAN RIGHT. SOME C/O PAIN OF LEFT CALF. NEGATIVE HOMANS SIGN. WILL CONTINUE TO MONITOR. BED ALARM ON
--- NOTE | 2021-10-03 04:06 | NUR ---
PREPARATORY TECHNICIAN SUMMARY PT ADMIT W/ACUTE ECEPHALOPATHY. PT REPORTS EXTENSIVE MED/SURG HX AND ALLERIES TO MEDS. PT IS A/OX 3. SHE IS ALERT BUT STRUGGLES TO RECALL INFORMATION ABOUT HER HX, MEDS, AND RECENT EVENTS. PT MOANING AND C/O OF PAIN "ALL OVER" AND IN HER LEGS. PT REPORTED ACCEPTABLE PAIN RELIEF W/PRN 25MCG OF FENTANYL; PT CALMED AND RESTED THROUGH THE NIGHT. PT IS A DAILY SMOKER. PT DECLINED NICOTINE PATCH DUE TO ALLERGY TO ADHESIVE. PT REPORTS SHE LIVES ALONE IN [place] AND COMPLETES ALL ADLS; USES WHEELCHAIR TO AMBULATE. PT HAS HX OF LEFT HIP SURGERY; LEFT TIBIA/FIB FRACTURE. PT IS WEIGHT BEARING [place] [facility] [place]. PT IS ORIENTED TO CALL LIGHT AND USING APPROPRIATELY.
--- NOTE | 2021-10-03 05:01 | NUR ---
[facility] [place] CALLED FOR RN TO ASSESS PT RE SLOW TO RESPOND TO WAKE UP FOR VS. VSS. PT WAKENS TO CALLING HER NAME BUT FALLS ASLEEP QUICKLY AFTERWARDS. POSITIVE TO [place] BUT THEN FALLS BACK TO SLEEP AGAIN. NO NOTED ACUTE DISTRESS. WILL F/U WITH VS IN ONE HR. CALL LIGHT IN REACH. (ED RN VOICED PT DID THIS IN THE ED PRIOR TO HER COMING TO THE FLOOR WELL.)
--- NOTE | 2021-10-03 05:25 | NUR ---
ADDENDUM TO WAITER/WAITRESS HEAD SUMMARY PT ORDERED AC/HS BS CHECKS. PT REPORTS NO HX OF DIABETES AND BS NORMAL. WILL REQUEST DAY SHIFT TO VERIFY ORDER.
[2021-10-03 06:18] LABS: BASOPHILS ABSOLUTE AUTO 0.05 K/mm3 (0.00-0.23); BASOPHILS PERCENT AUTO 1 % (0-2); EOSINOPHILS ABSOLUTE AUTO 0.24 K/mm3 (0.00-0.68); EOSINOPHILS PERCENT AUTO 3 % (0-6); Hemoglobin 10.5 g/dL (11.5-16.0); IMMATURE GRAN ABSOLUTE AUTO 0.12 K/mm3 (0.00-0.10); IMMATURE GRAN PERCENT AUTO 2 % (0-1); LYMPHOCYTES ABSOLUTE AUTO 1.83 K/mm3 (0.84-5.20); LYMPHOCYTES PERCENT AUTO 23 % (21-46); MONOCYTES ABSOLUTE AUTO 0.85 K/mm3 (0.16-1.47); MONOCYTES PERCENT AUTO 11 % (4-13); Mean Platelet Volume 10.7 fL (9.1-12.4); NEUTROPHILS ABSOLUTE AUTO 4.89 K/mm3 (1.96-9.15); NEUTROPHILS PERCENT AUTO 61 % (41-73); Platelet Count 180 K/mm3 (150-400); White Blood Cell Count 7.98 K/mm3 (4.00-11.30)
[2021-10-03 06:19] LABS: Hematocrit 35.1 % (33.0-51.0); Mean Corpuscular HGB 27.3 pg (26.0-34.0); Mean Corpuscular HGB Conc 29.9 g/dL (31.5-36.5); Mean Corpuscular Volume 91 fL (80-100); Red Blood Cell Count 3.84 M/mm3 (3.80-5.20)
[2021-10-03 06:36] LABS: Albumin, Blood 2.6 g/dL (3.4-5.0); Albumin/Globulin Ratio 0.7 (0.8-1.8); Bilirubin, Total 1.2 mg/dL (0.1-1.0); Bun/Creatinine Ratio 14.9 (12.0-20.0); Calcium, Blood 8.3 mg/dL (8.5-10.1); Creatinine, Blood 0.87 mg/dL (0.40-1.00); Globulin, Blood 3.5 g/dL (2.2-4.0); Potassium, Blood 4.1 mmol/L (3.5-5.5); Total Protein, Blood 6.1 g/dL (6.4-8.2)
--- NOTE | 2021-10-03 06:39 | NUR ---
DIFFICULT TO AWAKEN. VSS. CHARGE NURSE CONSULTED. CALLED. ORDERS FOR STAT ABG OBTAINED. AWAITING RESULTS. OTHERWISE ASYMPTOMATIC
[2021-10-03 07:06] LABS: PCO2 Arterial 47.1 mmHg (35-45); PO2 Arterial 63.3 mmHg (80-100); pH Blood Arterial 7.41 (7.35-7.45)
--- NOTE | 2021-10-03 11:13 | NUR ---
Pt resting in bed upon arrival. Pt A&OX2/3. Pt reports living at home alone and states wanting to go home. Reviewed plan of care with Pt and discussed POLST on file. Pt appears to have some difficulty understanding some of the more complex discussion regarding life sustaining treatments but does confirm wishes are for DNR wich does align with POLST completed in 2017. Spoke with Primary RN [place] and discussed case. Called and spoke with Pt's daughter Melissa who is listed as Primary [facility] [employer] on advanced directive. Provided update and reviewed plan of care. Melissa confirms Pt's wishes for DNR. Offered active listening as Melissa expresses concerns that Pt has dementia and is requesting a cognitive evaluation. Instructed request will be relayed to Dr Lima. Melissa expresses appreciation and reports no other concerns at this time. Spoke with Dr Lima and discussed case including POLST on file and wishes for DNR. Relayed family's wishes for cognitive evaluation. [email or web address] and OT order for Cognitive evaluation per V/O from Dr Lima. Palliative Care will remain available.
--- NOTE | 2021-10-03 11:18 | NUR ---
NURSE NOTE. PATIENT WAS INCREASINGLY LETHARGIC. CALLED FOR ORDERS. NARCAN WAS ABOUT TO BE ADMINISTERED AND PATIENT WAS MORE ALERT AND IS STILL ALERT. NOTIFIED AND HAS SEEN PATIENT. WILL MONITOR.
--- NOTE | 2021-10-03 17:13 | NUR ---
SHIFT SUMMARY PATIENT WAS LETHARGIC TO BEGIN SHIFT. BEGAN TO PULL NARCAN AND PATIENT BEGAN TO WAKEN UP. PATIENT HAS BEGUN TO CLEAR SINCE TAKING LACTULOSE. PATIENT IS A POSSIBLE DISCHARGE TOMORROW. PATIENT HAS NOT COMPLAINED OF PAIN, NAUSEA, SOB, VOMITTING. NO ACUTE EVENTS AFTER PREVIOUSLY MENTIONED. VITAL SIGNS REVIEWED. BED IN LOCKED AND LOWEST POSITION. CALL LIGHT IN PLACE. WILL MONITOR UNTIL SHIFT. CHANGE.
[2021-10-04 05:53] LABS: Bun/Creatinine Ratio 13.8 (12.0-20.0); Calcium, Blood 8.1 mg/dL (8.5-10.1); Creatinine, Blood 0.87 mg/dL (0.40-1.00); Potassium, Blood 4.3 mmol/L (3.5-5.5)
--- NOTE | 2021-10-04 06:15 | NUR ---
SHIFT SUMMARY - PT SLEPT AFTER FENTANYL IV GIVEN. MOTRIN GIVEN X2 - MEDICATED WITH MOTRIN THIS AM, BECAUSE PT UP TO BSC WITH SBA, AND REPORTED FEELING DIZZY - PT PLACED BACK INTO BED, HEAD FLAT. ON REASSESSMENT AFTER MOTRIN GIVEN PT WAS SLEEPING IN FLAT POSITION IN BED, CALL LIGHT WITHIN REACH, BED ALARM ON, FLUIDS AT BEDSIDE. OTHERWISE NO ACUTE CHANGES THROUGHOUT THE SHIFT. PT HAS BEEN A&OX3, RESPONDING APPROPRIATELY TO QUESTIONS ASKED. PT'S SKIN COLOR IS DUSKY, BUT NO CHANGE FROM INITIAL ASSESSMENT. PT DOES GET ANXIOUS AT TIMES - REDIRECTS EASILY. FLUIDS AT BEDSIDE. WILL CONTINUE TO MONITOR UNTIL AM SHIFT CHANGE.
[2021-10-04] MEDS ORDERED: RIFA550T2 PO (12:16)
[2021-10-04] MEDS ORDERED: ANTIFUNGAL POWD85 GM TOP (12:16)
[2021-10-04] MEDS ORDERED: MELA3 PO (12:24)
--- NOTE | 2021-10-04 16:06 | NUR ---
DISCHARGE SUMMARY PATIENT IS ALERT AND ORIENTED BUT OCCASIONAL CONFUSION. PATIENT HAS HAD NO ACUTE EVENTS THIS SHIFT. PATIENT HAS NOT COMPLAINED OF SOB, NAUSEA, VOMITTING THIS SHIFT. PATIENT HAS COMPLAINED OF PAIN AND MEDICATED PER EMAR. PATIENT WAS DISCHARGED HOME WITH HOME HEALTH. PATIENT WAS TRANSPORTED BY [facility].
== END 2021-10-04 17:00 | disposition home health service (06) ==
LOC: ER 11:15 → ERHOLD 11:16 → MEDS 20:39
PROVIDERS: Emergency Medicine; Family Medicine; Internal Medicine; ADMIT Internal Medicine
DX: G93.40 Encephalopathy, unspecified (principal); J44.9 Chronic obstructive pulmonary disease, unspecified; I10 Essential (primary) hypertension; B37.2 Candidiasis of skin and nail; E03.9 Hypothyroidism, unspecified; F41.8 Other specified anxiety disorders; D63.8 Anemia in other chronic diseases classified elsewhere; M25.552 Pain in left hip; F17.210 Nicotine dependence, cigarettes, uncomplicated; Z51.5 Encounter for palliative care; Z66 Do not resuscitate; Z88.1 Allergy status to other antibiotic agents; Z88.2 Allergy status to sulfonamides; Z88.5 Allergy status to narcotic agent; Z91.040 Latex allergy status; Z91.018 Allergy to other foods
CPT/HCPCS: 36415; 36600; 51701; 70450; 71046; 73502; 80048; 80053; 81001; 82140; 82803; 82947; 83605; 84443; 85025; 93005; 93010; 94640; 94760; 96372; 96374; 97110; 97116; 97129; 97130; 97161; 97166; 97530; 99285-25; A9270; G0378; G0480; J1650; J2310; J3010; J7120